=== PATIENT | female | born 1970 | race Caucasian/White ===

== ENCOUNTER 2017-09-26 14:11 | Emergency (ER) | payer OTHER ==
[2017-09-26] MEDS ORDERED: Albuterol-Ipratrop 3 mg / 0.5 (3 ml) UD INH STA (15:07)
--- NOTE | 2017-09-26 15:12 | ED PDOC ---
HPI: Abdomen Time Seen by Provider: 09/26/17 15:07 Chief Complaint (Nursing): Abnormal Skin Integrity Chief Complaint (Provider): Shortness of Breath and Rash History Per: Patient History/Exam Limitations: no limitations Onset/Duration Of Symptoms: Days (x2 ) Outside of [place] travel?: No Current Symptoms Are (Timing): Still Present Past Medical History Vital Signs: Last Vital Signs Temp Pulse 93 H 09/26/17 14:35 Resp 16 09/26/17 14:35 BP 141/99 H 09/26/17 14:35 Pulse Ox 99 09/26/17 14:35 - Medical History PMH: Asthma Denies: Chronic Kidney Disease - Family History Family History: States: Unknown Family Hx - Immunization History Hx Influenza Vaccination: Yes (2014) - Home Medications Home Medications: Ambulatory Orders Medication Instructions Recorded Albuterol 0.083% [Albuterol 3 ml IH Q4 PRN #50 neb 09/24/15 Sulfate 3 Ml] Oseltamivir Phosphate [Tamiflu] 75 mg PO BID #10 cap 09/24/15 Prednisone 3 tab PO DAILY #15 tab 09/24/15 Albuterol HFA [Ventolin HFA 90 2 puff IH [id number] PRN #1 inh 05/04/16 mcg/actuation (8 g)] predniSONE [predniSONE Tab] 3 tab PO DAILY #12 tab 05/04/16 Albuterol Sulfate [Proair Hfa] 0.09 mg IH Q6H PRN #2 inh 06/30/16 Benzonatate [Tessalon Perles] 100 mg PO BID PRN 5 Days sgl 06/30/16 predniSONE [predniSONE Tab] 20 mg PO BID 5 Days tab 06/30/16 - Allergies Allergies/Adverse Reactions: Allergies Allergy/AdvReac Type Severity Reaction Status Date / Time FISH Allergy RASH Verified 05/04/16 20:40 - ECG O2 Sat by Pulse Oximetry: 99 Disposition - Disposition Forms: [facility] ([place])
--- NOTE | 2017-09-26 15:22 | ED PDOC ---
HPI: General Adult Time Seen by Provider: 09/26/17 15:07 Chief Complaint (Nursing): Abnormal Skin Integrity Chief Complaint (Provider): Shortness of Breath and Rash History Per: Patient History/Exam Limitations: no limitations Onset/Duration Of Symptoms: Days (x2) Current Symptoms Are (Timing): Still Present Additional Complaint(s): Melony Banks, a 46 year old female, presents to the ED complaining of shortness of breath. The patient reports that she has been having asthma exacerbation for 2 days. She states that she does not have a machine due to insurance issues and so she has been using her friends. Patient also notes unproductive cough and left sided pleuretic pain. Denies leg swelling and fever and is also requesting a nebulizer machine. Patient goes on to state that she has also had a red and itchy rash growing in her abdominal folds.She states that she has been applying hydrocortisone cream with no relief. The patient also notes a bump on her genital area. Denies discharge and bleeding. PMD: Magdalena Zimmerman Past Medical History Reviewed: Historical Data, Nursing Documentation, Vital Signs Vital Signs: Last Vital Signs Temp 98 F 09/26/17 16:26 Pulse 90 09/26/17 16:26 Resp 20 09/26/17 16:26 BP 136/87 09/26/17 16:26 Pulse Ox 100 09/26/17 16:26 - Medical History PMH: Asthma Denies: Chronic Kidney Disease - Surgical History Other surgeries: lipoma removal; ankle surgery. - Family History Family History: States: Other Other Family History: Asthma - Social History Current smoker - smoking cessation education provided: Yes Ex-Smoker (has not smoked in the last 12 months): Yes Alcohol: < 2 Drinks/Day Drugs: Denies - Immunization History Hx Influenza Vaccination: Yes (2014) - Home Medications Home Medications: Ambulatory Orders Medication Instructions Recorded Albuterol 0.083% [Albuterol 3 ml IH Q4 PRN #50 neb 09/24/15 Sulfate 3 Ml] Oseltamivir Phosphate [Tamiflu] 75 mg PO BID #10 cap 09/24/15 Prednisone 3 tab PO DAILY #15 tab 09/24/15 Albuterol HFA [Ventolin HFA 90 2 puff IH [id number] PRN #1 inh 05/04/16 mcg/actuation (8 g)] predniSONE [predniSONE Tab] 3 tab PO DAILY #12 tab 05/04/16 Albuterol Sulfate [Proair Hfa] 0.09 mg IH Q6H PRN #2 inh 06/30/16 Benzonatate [Tessalon Perles] 100 mg PO BID PRN 5 Days sgl 06/30/16 predniSONE [predniSONE Tab] 20 mg PO BID 5 Days tab 06/30/16 Albuterol 0.083% [Albuterol 3 ml IH Q4 PRN #50 neb 09/26/17 Sulfate 3 Ml] Clotrimazole/Betamethasone 1 appl EXT BID #1 tube 09/26/17 [Lotrisone] Nebulizer [Aeroeclipse II] 1 each MC PRN PRN #1 each 09/26/17 - Allergies Allergies/Adverse Reactions: Allergies Allergy/AdvReac Type Severity Reaction Status Date / Time FISH Allergy RASH Verified 05/04/16 20:40 Review of Systems ROS Statement: Except As Marked, All Systems Reviewed And Found Negative (and as per HPI) Constitutional: Negative for: Fever Cardiovascular: Positive for: Other (left sided pleuretic pain) Respiratory: Positive for: Cough (unproductive cough), Shortness of Breath Musculoskeletal: Positive for: Other (denies leg swelling) Skin: Positive for: Rash (b/l rash in folds of abdomen) Physical Exam - Reviewed Nursing Documentation Reviewed: Yes Vital Signs Reviewed: Yes - Physical Exam Appears: Positive for: Non-toxic, No Acute Distress Head Exam: Positive for: ATRAUMATIC, NORMOCEPHALIC Skin: Positive for: Warm, Dry, Rash (patches of erythema bilateral inguinal folds and pannicular fold, nontender papule with no erythema or fluctance LEFT mons pubis) Neck: Positive for: Painless ROM, Supple Cardiovascular/Chest: Positive for: Regular Rate, Rhythm. Negative for: Murmur Respiratory: Positive for: Wheezing (diffusely) Gastrointestinal/Abdominal: Positive for: Soft. Negative for: Tenderness Neurologic/Psych: Positive for: Alert. Negative for: Motor/Sensory Deficits - ECG O2 Sat by Pulse Oximetry: 99 (RA) Pulse Ox Interpretation: Normal Medical Decision Making Medical Decision Makin Initial IMpression 46 y/o female presenting with asthma exacerbation and Tinea cruris Initial Plan: * Udip * Upreg * Albuterol 6 ml INH Scribe Attestation: Documented by Neva Watts, acting as a scribe for Nedra Loja MD Provider Scribe Attestation: All medical record entries made by the Scribe were at my direction and personally dictated by me. I have reviewed the chart and agree that the record accurately reflects my personal performance of the history, physical exam, medical decision making, and the department course for this patient. I have also personally directed, reviewed, and agree with the discharge instructions and disposition. Disposition - Clinical Impression Clinical Impression: Asthma, Tinea cruris, Folliculitis Counseled Patient/Family Regarding: Studies Performed, Diagnosis, Need For Followup, Rx Given - Disposition Disposition: Routine/Home Disposition Time: 15:46 Condition: IMPROVED Additional Instructions: FOLLOW UP SCHEDULED WITH YOUR DOCTOR Prescriptions: Albuterol 0.083% [Albuterol Sulfate 3 Ml] 3 ml IH Q4 PRN #50 neb PRN Reason: asthma Clotrimazole/Betamethasone [Lotrisone] 1 appl EXT BID #1 tube Nebulizer [Aeroeclipse II] 1 each MC PRN PRN #1 each PRN Reason: asthma Instructions: Asthma (ED), Folliculitis (ED), Skin Yeast Infection (ED) Forms: [facility] ED School/Work Excuse
[2017-09-26] MEDS ORDERED: Albuterol-Ipratrop 3 mg / 0.5 (3 ml) UD ONE (15:31)
[2017-09-26 16:27] VITALS: BP 136/87; PULSE 90; RESP 20; TEMP 98
[2017-10-01 14:28] VITALS: O2SAT 99
== END 2017-09-26 16:28 | disposition home or self-care (01) ==
LOC: H.ER 14:11
DX: J45.901 Unspecified asthma with (acute) exacerbation (principal); B35.6 Tinea cruris; F17.200 Nicotine dependence, unspecified, uncomplicated; L73.9 Follicular disorder, unspecified